=== PATIENT | male | born 1965 | race Caucasian/White ===

== ENCOUNTER 2017-03-22 01:44 | Emergency (ER) | payer MEDICARE ==
[~2017-03-22] VITALS: Ht 177.8 cm; Wt 93.9 kg
[2017-03-22 01:44] VITALS: BP 158/94
[~2017-03-22 01:44] MED LIST: AMLO5TAB4 PO; BACL10TA PO; ESCITALOPRAM OX20 MG PO; LISI40TA PO; TRAM50TA PO
[2017-03-22] MEDS ORDERED: methylPREDNISolone SOD SUCC PF 125 MG/2 ML VIAL. IV ONE (02:15)
[2017-03-22] MEDS ORDERED: IV NORMAL SALINE 1,000ML 1,000 ML IV SCH (02:15)
[2017-03-22] MEDS ORDERED: CLINDAMYCIN 900MG PREMIX 50 ML IV ONE (02:15)
[2017-03-22] MEDS ORDERED: IOHEXOL 300 MG/ML 75 ML VIAL. IV ONE (02:30)
[2017-03-22] MEDS ORDERED: CONTRAST GIVEN MC PRN (02:30)
[2017-03-22 02:38] LABS: C REACTIVE PROTEIN 74.7 mg/L (0-3.3); CALCIUM 9.3 mg/dL (8.5-10.1); CREATININE 0.8 mg/dL (0.7-1.3); GFR 101.9; POTASSIUM 3.5 mmol/L (3.5-5.1)
[2017-03-22 02:53] LABS: BASO # 0.1 x10^3/uL (0.0-0.2); BASO % 1 % (0-3); EOS # 0.3 x10^3/uL (0.0-0.7); EOS % 3 % (0-3); LYMPH # 2.4 x10^3/uL (1.0-4.8); LYMPH % 22 % (24-48); MEAN CORPUSCULAR HEMOGLOBIN 34 pg (25-35); MEAN CORPUSCULAR VOLUME 96 fL (79-100); MONO % 9 % (0-9); NEUT # 7.3 x10^3uL (1.8-7.7); NEUT % 66 % (31-73); PLATELET COUNT 291 x10^3/uL (140-400); RED CELL DISTRIBUTION WIDTH 12.1 % (11.5-14.5); WHITE BLOOD COUNT 11.1 x10^3/uL (4.0-11.0)
[2017-03-22 03:06] LABS: HEMATOCRIT 47.6 % (39.0-53.0); HEMOGLOBIN 16.8 g/dL (13.0-17.5); MEAN CORPUSCULAR HGB CONC 35 g/dL (31-37); RED BLOOD COUNT 4.94 x10^6/uL (4.30-5.70)
[2017-03-22] MEDS ORDERED: IPRATRPIUM/ALBUTEROL 0.5/2.5MG 3 ML NEBU. NEB ONE (03:15)
--- NOTE | 2017-03-22 03:38 | RAD ---
INDICATION: [id number] Omni 300 70cc: Right sided facial, dental pain with swelling. Hx: 2005 throat cancer nodule removal. COMPARISON: CT head January 2016 TECHNIQUE: Axial CT images obtained through the face with contrast. One or more of the following individualized dose reduction techniques were utilized for this examination: 1. Automated exposure control; 2. Adjustment of the mA and/or kV according to patient size; 3. Use of iterative reconstruction technique. FINDINGS: There is some mucosal thickening of the right maxillary sinus. Bowing of the nasal septum to the left. Subcutaneous swelling is seen throughout the face, right greater than left. No retro-orbital fluid collection. Large amount of dental artifact obscures regions. There are some scattered enlarged lymph nodes within the face and upper neck. For example posterior to the right mandible measuring up to 14 x 26 mm. Degenerative changes of partially visualized spine. IMPRESSION: Large amount of swelling is seen within the facial region. If the patient is having infectious symptoms this could be secondary to causes such as cellulitis. Adjacent to the right side of the maxilla within this region there is a region of low-attenuation measuring up to about 10 mm. Given the other findings this could be secondary to early abscess/phlegmon formation. Mucosal thickening is identified of the right maxillary sinus. Causes such as sinusitis not excluded. Lymphadenopathy is identified. Could be reactive in nature but neoplastic causes are not excluded on this exam and a follow-up should be obtained to ensure this resolves. Electronically signed by: Master Sun MD (03/22/2017 3:35 AM) [facility]
--- NOTE | 2017-03-22 03:44 | PHYS DOC ---
General Chief Complaint: DENTAL PROBLEM Stated Complaint: DENTAL PAIN, SWELLING Time Seen by MD: 01:52 Source: patient, old records Exam Limitations: no limitations Problems: History of Present Illness Initial Comments Patient is a 51-year-old male who comes to the ED complaining of dental pain and facial swelling. Patient states that for the past week or so he's had a worsening toothache at his right upper premolars. The past 24 hours he's had right-sided facial swelling and an increase in discomfort which prompted him to come for evaluation. He denies difficulty swallowing or breathing denies fever chills sweats or body aches. He's tried [id number] medications as well as tramadol without any relief. He is up front on arrival stating he does not want to be admitted to the hospital. He is afebrile, hypertensive on arrival consistent with physiologic response to pain otherwise vital signs are stable. He hasn't been eating the past few days due to discomfort but has been drinking plenty of fluids. Timing/Duration: other Severity: severe Location: mouth, facial, dental Prearrival Treatment: over the counter meds, prescription meds Modifying Factors: improves with other Associated Symptoms: facial pain/swelling, poor solids intake, tooth pain Allergies: Coded Allergies: codeine (Verified Allergy, Intermediate, 02/03/16) Past Medical History Medical History: CVA/TIA/stroke, hypertension, other (obstructive sleep apnea uses CPAP) Surgical History: noncontributory Social History Smoker: cigarettes Alcohol: occasionally Drugs: none Constitutional: denies chills, denies diaphoresis, denies fever, denies malaise Ears: denies dizziness, denies pain, denies tinnitus Nose: denies clots, denies epistaxis, denies pain Mouth: see HPI Throat: denies pain, denies swelling, denies neck stiffness, denies painful swallowing, denies difficulty with fluids Respiratory: denies cough, denies shortness of breath, denies wheezing Cardiovascular: denies chest pain, denies palpitations, denies syncope Gastrointestinal: denies abdominal pain, denies nausea, denies vomiting Musculoskeletal: denies back pain, denies joint swelling, denies neck pain Neurological: denies headache, denies numbness, denies paresthesia, denies weakness Physical Exam General Appearance: mild distress (appears uncomfortable right facial swelling) Eyes: bilateral eye normal inspection, bilateral eye PERRL, bilateral eye EOMI Ears: bilateral ear auricle normal, bilateral ear canal normal, bilateral ear TM normal Nose: normal inspection Mouth/Throat: other (extensive caries at right upper second premolar with gingival swelling no purulence or bony tenderness noted. 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 PATIENT: LEON SYLVESTER ACCOUNT: [id number] : 1965 LOCATION: ER AGE: 51 SEX: M EXAM STATUS: PRE ER ORD. PHYSICIAN: BARRETT AVILA DO REASON: R facial swelling/dental abscess r/o osteomyelitis PROCEDURE: CT MAXILLOFACIAL W/CONTRAST INDICATION: [id number] Omni 300 70cc: Right sided facial, dental pain with swelling. Hx: 2004 throat cancer nodule removal. COMPARISON: CT head January 2016 TECHNIQUE: Axial CT images obtained through the face with contrast. One or more of the following individualized dose reduction techniques were utilized for this examination: 1. Automated exposure control; 2. Adjustment of the mA and/or kV according to patient size; 3. Use of iterative reconstruction technique. FINDINGS: There is some mucosal thickening of the right maxillary sinus. Bowing of the nasal septum to the left. Subcutaneous swelling is seen throughout the face, right greater than left. No retro-orbital fluid collection. Large amount of dental artifact obscures regions. There are some scattered enlarged lymph nodes within the face and upper neck. For example posterior to the right mandible measuring up to 14 x 26 mm. Degenerative changes of partially visualized spine. IMPRESSION: Large amount of swelling is seen within the facial region. If the patient is having infectious symptoms this could be secondary to causes such as cellulitis. Adjacent to the right side of the maxilla within this region there is a region of low-attenuation measuring up to about 10 mm. Given the other findings this could be secondary to early abscess/phlegmon formation. Mucosal thickening is identified of the right maxillary sinus. Causes such as sinusitis not excluded. Lymphadenopathy is identified. Could be reactive in nature but neoplastic causes are not excluded on this exam and a follow-up should be obtained to ensure this resolves. Electronically signed by: Lars Sun MD (03/22/2017 3:35 AM) [facility] DICTATED AND SIGNED BY: LARS SUN MD DATE: 03/22/17 0256 CC: BARRETT AVILA DO ~ Pertinent labs: White blood cells 11.1, CRP 74.7, urine drug screen positive for alcohol and opiates DuoNeb with improved breath sounds and decreased wheezes. After 1 dose of fentanyl intravenously the patient achieves comfort and he lays down dozing off. Patient oxygen saturation drops to right at 90% on room air however when I evaluate the patient is lying with his neck flexed forward and he 's dozing off. When he adjust his position is oxygen saturation is normal and he is conversational with full sentences and in no respiratory distress at any time. 0431: Patient states that he notices a dramatic difference in the swelling since receiving Solu-Medrol intravenously as it has improved and his skin is no longer tight. I discussed results with the patient at length. I offered him observation admission which he declined. I discussed signs and symptoms to monitor as well as urgent indication to return to the department. His questions were answered to his satisfaction and I provided him information regarding the [facility] and [facility] clinic. He was advised to discontinue tobacco abuse and not to drink alcohol while taking pain medications. He will follow-up with his doctor on Saturday and schedule an SHANAE appointment with dentist. He expressed agreement and understanding of the treatment plan. Departure Time of Disposition: 04:13 Disposition: HOME, SELF-CARE Diagnosis: dental abscess with facial cellulitis, tobaccoism Condition: IMPROVED Patient Instructions: Dental Abscess, Smoking Cessation Additional Instructions: Stop smoking seek medical assistance if necessary. No alcohol while taking pain medications to avoid respiratory depression. Use CPAP while sleeping. Hoce-zlz-jmfkciq ibuprofen for baseline discomfort. Prescription: Arnold 7.5 mg quantity 20, clindamycin, prednisone You'll need to follow-up with a dentist once the infection is under control for resolution of this condition. Per your request we can provide information regarding the [facility] and [facility]. Follow-up by phone with these organizations later today so you can get an appointment on the books with a dentist. Return to ED with new or changing symptoms. BARRETT AVILA DO Mar 22, 2017 03:44
[2017-03-22 03:55] LABS: BARBITURATES NEG (NEG); BENZODIAZEPINES NEG (NEG); CANNABINOIDS NEG (NEG); COCAINE NEG (NEG); METHADONE NEG (NEG); OPIATES POS (NEG); PHENCYCLIDINE NEG (NEG)
[2017-03-22 03:57] LABS: AMPHETAMINE/METHAMPHETAMINE NEG (NEG)
[2017-03-22] MEDS ORDERED: PRED20TA PO (04:12)
[2017-03-22] MEDS ORDERED: HYDR-965 PO (04:12)
[2017-03-22] MEDS ORDERED: CLIN300C8 PO (04:12)
[2017-03-22] MEDS ORDERED: predniSONE 10 MG TABLET PO ONE (04:15)
[2017-03-22] MEDS ORDERED: predniSONE 20 MG TABLET ONE (04:19)
== END 2017-03-22 04:23 | disposition home or self-care (01) ==
LOC: ER 01:44
DX: K04.7 Periapical abscess without sinus (principal); L03.211 Cellulitis of face; I10 Essential (primary) hypertension; G47.33 Obstructive sleep apnea (adult) (pediatric); F17.210 Nicotine dependence, cigarettes, uncomplicated; Z86.73 Personal history of transient ischemic attack (TIA), and cerebral infarction without residual deficits; Z88.5 Allergy status to narcotic agent
CPT/HCPCS: 36415; 70487; 80048; 80307; 85025; 86140; 87040; 94640; 96365; 96375; 96376; 99285; J2930; J3010; J3490; J7512; J7620; G0479; J7030

== ENCOUNTER 2017-04-29 14:15 | Emergency (ER) | payer MEDICARE ==
[2017-04-29 14:15] VITALS: BP 107/67
[~2017-04-29 14:15] MED LIST changes: +CLIN300C8 PO; +HYDR-965 PO; +PRED20TA PO
[2017-04-29 16:29] LABS: BILIRUBIN,URINE NEG (NEG); CLARITY,URINE HAZY; COLOR,URINE AMBER; GLUCOSE,URINE NEG (NEG)
[2017-04-29 16:30] LABS: BACTERIA,URINE MOD /HPF (0-FEW); HYALINE CASTS, URINE FEW /HPF; NITRITE,URINE POS (NEG); SQUAMOUS EPITHELIAL CELL,UR OCC /LPF; UROBILINOGEN,URINE 0.2 mg/dL (0.2 mg/dL); WBC,URINE 20-40 /HPF (0-4); YEAST,URINE PRESENT /HPF
[2017-04-29] MEDS ORDERED: CIPR250T30 PO (17:21)
--- NOTE | 2017-04-29 17:21 | PHYS DOC ---
Past History Past Medical History: CVA, Hypertension, Other Additional Past Medical Histor: ADHD Past Surgical History: Other Smoking: Cigarettes Alcohol Use: Sober Additional Alcohol Information: 6 months Drug Use: None Adult General Chief Complaint Chief Complaint: PENIS PROBLEM HPI HPI 51-year-old male patient with history of ADHD complaining of intermittent episodes of urinary incontinence for the last 3 days and dysuria at the end of his urination. Patient states sometimes he urinates on his pants without recognizing of his urination and sometimes he has well controlled urination for the last 3 days. Patient complaining of dysuria in the office urination without abdominal pain, nausea vomiting, fever and chills. Patient states he had problem with his ejaculation 3 months ago and seen by his primary care physician and evaluated for prostate problem. Review of Systems Review of Systems Constitutional: Denies fever or chills [] Eyes: Denies change in visual acuity, redness, or eye pain [] HENT: Denies nasal congestion or sore throat [] Respiratory: Denies cough or shortness of breath [] Cardiovascular: No additional information not addressed in HPI [] GI: Denies abdominal pain, nausea, vomiting, bloody stools or diarrhea [] : Reports dysuria and urinary incontinence Musculoskeletal: Denies back pain or joint pain [] Integument: Denies rash or skin lesions [] Neurologic: Denies headache, focal weakness or sensory changes [] Endocrine: Denies polyuria or polydipsia [] All other systems were reviewed and found to be within normal limits, except as documented in this note. Allergies Allergies Allergies Coded Allergies Type Severity Reaction Last Updated Verified codeine Allergy Intermediate 02/03/16 Yes Physical Exam Physical Exam Constitutional: Well nourished, no acute distress, non-toxic appearance, anxious. [] HENT: Normocephalic, atraumatic, bilateral external ears normal, oropharynx moist, no oral exudates, nose normal. [] Eyes: PERRLA, EOMI, conjunctiva normal, no discharge. [] Neck: Normal range of motion, no tenderness, supple, no stridor. [] Cardiovascular:Heart rate regular rhythm, no murmur [] Lungs & Thorax: Bilateral breath sounds clear to auscultation [] Abdomen: Bowel sounds normal, soft, no tenderness, no masses, no pulsatile masses. [] Skin: Warm, dry, no erythema, no rash. [] Back: No tenderness, no CVA tenderness. [] Extremities: No tenderness, no cyanosis, no clubbing, ROM intact, no edema. [] Neurologic: Alert and oriented X 3, normal motor function, normal sensory function, no focal deficits noted. [] Psychologic: Affect normal, judgement normal, mood normal. [] Current Patient Data Vital Signs Vital Signs Date Time Temp Pulse Resp B/P (MAP) Pulse Ox O2 Delivery O2 Flow Rate FiO2 04/29/17 14:15 97.8 105 18 96 Room Air Lab Results Laboratory Tests Test 04/29/17 15:52 Urine Collection Type Void Urine Color Cherry Urine Clarity Hazy Urine pH 6.0 Urine Specific Webster 1.025 Urine Protein 100 mg/dl (NEG-TRACE) Urine Glucose (UA) Neg mg/dL (NEG) Urine Ketones (Stick) Trace mg/dL (NEG) Urine Blood Mod (NEG) Urine Nitrite Pos (NEG) Urine Bilirubin Neg (NEG) Urine Urobilinogen Dipstick 0.2 mg/dL (0.2 mg/dL) Urine Leukocyte Esterase Small (NEG) Urine RBC 11-20 /HPF (0-2) Urine WBC 20-40 /HPF (0-4) Urine Squamous Epithelial Cells Occ /LPF Urine Bacteria Mod /HPF (0-FEW) Urine Hyaline Casts Few /HPF Urine Mucus Mod /LPF Urine Yeast Present /HPF EKG EKG [] Radiology/Procedures Radiology/Procedures [] Course & Med Decision Making Course & Med Decision Making Pertinent Labs reviewed. (See chart for details) Evaluation of patient in ER showed 51-year-old male patient with complaining of urinary incontinence intermittently and dysuria for the last 3 days. Patient had unremarkable physical exam. UA showed UTI. Patient left without having the discharge paper. [] Dragon Disclaimer Dragon Disclaimer This electronic medical record was generated, in whole or in part, using a voice recognition dictation system. Departure Departure: Impression: Primary Impression: Urinary tract infection Additional Impression: Urine incontinence Disposition: HOME, SELF-CARE (At 1715) Condition: STABLE Referrals: KARIN DASH MD (PCP) Patient Instructions: Urinary Tract Infection Additional Instructions: Follow-up with your primary care physician in 2-3 days Return to ER if not getting better Scripts Ciprofloxacin Hcl (CIPRO) 250 Mg Tablet 1 TAB PO BID, #14 TAB Prov: DOLORES MCKOY MD 04/29/17 Problem Qualifiers DOLORES MCKOY MD Apr 29, 2017 17:21
== END 2017-04-29 17:20 | disposition home or self-care (01) ==
LOC: ER 14:15
DX: N39.0 Urinary tract infection, site not specified (principal); R32 Unspecified urinary incontinence; I10 Essential (primary) hypertension; F90.9 Attention-deficit hyperactivity disorder, unspecified type; F17.210 Nicotine dependence, cigarettes, uncomplicated; Z86.73 Personal history of transient ischemic attack (TIA), and cerebral infarction without residual deficits; Z88.5 Allergy status to narcotic agent
CPT/HCPCS: 81001; 87086; 87186; 99284

== ENCOUNTER 2018-08-08 01:47 | Observation (INO) | payer MEDICARE ==
[~2018-08-08] VITALS: Ht 177.8 cm; Wt 104.8 kg
[~2018-08-08 01:47] MED LIST changes: +CIPR250T30 PO; +HYDR-3166 PO; -HYDR-965 PO
--- NOTE | 2018-08-08 02:09 | PHYS DOC ---
Past History Past Medical History: CVA, Hypertension, Other Additional Past Medical Histor: ADHD Past Surgical History: Other Smoking: Cigarettes Alcohol Use: Sober Drug Use: None Adult General Chief Complaint Chief Complaint: ALTERED MENTAL STATUS [facility] HPI Patient is a 53-year-old male who arrives via EMS with report of acute mental status changes at home. Patient's reportedly thought the patient was sleeping because he was snoring but states that the snoring sounded a bit funny. She states that it one point that he started shaking and she couldn't get him to respond. She states that he was foaming at the mouth and so had called 911. EMS reports that upon their arrival patient initially was unresponsive and then spontaneously returned to his responsiveness. They state that at first he was a bit confused but then was answering questions. They state that patient again went unresponsive, lasting for approximately 25 minutes and upon arrival to the emergency room, patient had regained responsiveness. Patient states that he does not recall what happened. Review of Systems Review of Systems Constitutional: Denies fever or chills [] Respiratory: Denies cough or shortness of breath [] Cardiovascular: No additional information not addressed in HPI [] GI: Denies abdominal pain, nausea, vomiting or diarrhea [] Neurologic: Positive seizure-like activity[] Unable to fully assess review of systems as patient is poor historian. Allergies Allergies Allergies Coded Allergies Type Severity Reaction Last Updated Verified codeine Allergy Intermediate 02/03/16 Yes Physical Exam Physical Exam Constitutional: Well developed, well nourished, no acute distress, non-toxic appearance. [] HENT: Normocephalic, atraumatic, bilateral external ears normal, oropharynx moist, no oral exudates, nose normal. [] Eyes: PERRLA, EOMI, conjunctiva normal, no discharge. [] Neck: Normal range of motion, no tenderness, supple, no stridor. [] Cardiovascular:Heart rate regular rhythm, no murmur [] Lungs & Thorax: Bilateral breath sounds clear to auscultation [] Abdomen: Bowel sounds normal, soft, no tenderness. [] Skin: Warm, dry, no erythema, no rash. [] Extremities: No tenderness, no cyanosis, no clubbing, ROM intact, no edema. [] Neurologic: Awake and alert, no focal deficits noted. [] Psychologic: Patient appears moderately anxious and emotionally labile. [] EKG EKG EKG demonstrates normal sinus rhythm with rate of 95.[] Radiology/Procedures Radiology/Procedures [] Impressions: PROCEDURE: CT HEAD WO CONTRAST CT head without contrast PQRS statement: CT scans at this facility use dose reduction including either automated exposure control, iterative reconstructions, and /or weight based radiation dosing via mA and kV modification when appropriate to reduce radiation dose to as low as reasonably achievable. HISTORY: Altered mental status, confusion and weakness. TECHNIQUE: [address] imaging skull base to vertex. FINDINGS: 1 cm cavitary chronic ischemic infarct right basal ganglia. No acute ischemic changes evident. No intracranial hemorrhage, mass or hydrocephalus. Orbits, paranasal sinuses, mastoids and bones are unremarkable. IMPRESSION: No acute intracranial CT abnormality. Chronic right basal ganglia infarct. Electronically signed by: Watson Akhtar MD (08/08/2018 2:49 AM) [facility] Course & Med Decision Making Course & Med Decision Making Pertinent Labs and Imaging studies reviewed. (See chart for details) [] Dragon Disclaimer Dragon Disclaimer This electronic medical record was generated, in whole or in part, using a voice recognition dictation system. Departure Departure: Impression: Primary Impression: Altered mental status, unspecified Disposition: ADMITTED INPATIENT Admitting Physician: Lyla Li Condition: IMPROVED Referrals: KARIN DASH MD (PCP) Problem Qualifiers Primary Impression: Altered mental status, unspecified Altered mental status type: transient alteration of awareness Qualified Codes : R40.4 - Transient alteration of awareness YUE MCGREGOR Jr. DO Aug 08, 2018 02:08
[2018-08-08] MEDS ORDERED: ZIPRASIDONE IM 20 MG VIAL. IM ONE (02:30)
[2018-08-08 02:49] LABS: ALBUMIN 3.7 g/dL (3.4-5.0); ALBUMIN/GLOBULIN RATIO 1.2 (1.0-1.7); CREATININE 0.9 mg/dL (0.7-1.3); GFR 88.3; MAGNESIUM 2.1 mg/dL (1.8-2.4); POTASSIUM 3.6 mmol/L (3.5-5.1); TOTAL BILIRUBIN 0.3 mg/dL (0.2-1.0); TOTAL PROTEIN 6.8 g/dL (6.4-8.2)
[2018-08-08 02:51] LABS: BASO # 0.1 x10^3/uL (0.0-0.2); BASO % 1 % (0-3); EOS # 0.2 x10^3/uL (0.0-0.7); EOS % 2 % (0-3); HEMATOCRIT 45.1 % (39.0-53.0); LYMPH # 3.2 x10^3/uL (1.0-4.8); LYMPH % 38 % (24-48); MEAN CORPUSCULAR HEMOGLOBIN 33 pg (25-35); MEAN CORPUSCULAR HGB CONC 35 g/dL (31-37); MEAN CORPUSCULAR VOLUME 93 fL (79-100); MONO # 0.7 x10^3/uL (0.0-1.1); MONO % 9 % (0-9); NEUT # 4.3 x10^3uL (1.8-7.7); NEUT % 51 % (31-73); PLATELET COUNT 256 x10^3/uL (140-400); RED BLOOD COUNT 4.85 x10^6/uL (4.30-5.70); WHITE BLOOD COUNT 8.4 x10^3/uL (4.0-11.0)
--- NOTE | 2018-08-08 02:51 | RAD ---
CT head without contrast PQRS statement: CT scans at this facility use dose reduction including either automated exposure control, iterative reconstructions, and /or weight based radiation dosing via mA and kV modification when appropriate to reduce radiation dose to as low as reasonably achievable. HISTORY: Altered mental status, confusion and weakness. TECHNIQUE: [address] imaging skull base to vertex. FINDINGS: 1 cm cavitary chronic ischemic infarct right basal ganglia. No acute ischemic changes evident. No intracranial hemorrhage, mass or hydrocephalus. Orbits, paranasal sinuses, mastoids and bones are unremarkable. IMPRESSION: No acute intracranial CT abnormality. Chronic right basal ganglia infarct. Electronically signed by: Watson Akhtar MD (08/08/2018 2:49 AM) [facility]
[2018-08-08] MEDS ORDERED: DEXTROSE 50% 25 GM / 50ML DISP.SYRIN. IV PRN (03:15)
[2018-08-08] MEDS ORDERED: KETOROLAC 30 MG/ML VIAL. IV ONE (03:30)
[2018-08-08 04:00] VITALS: BP 159/101
[2018-08-08 06:25] LABS: CLARITY,URINE CLEAR; COLOR,URINE YELLOW
[2018-08-08 06:26] LABS: BACTERIA,URINE 0 /HPF (0-FEW); BILIRUBIN,URINE NEG (NEG); GLUCOSE,URINE 100 mg/dL (NEG); NITRITE,URINE NEG (NEG); RBC,URINE 0 /HPF (0-2); SQUAMOUS EPITHELIAL CELL,UR OCC /LPF; UROBILINOGEN,URINE 0.2 mg/dL (0.2 mg/dL)
[2018-08-08 06:28] LABS: BARBITURATES NEG (NEG); BENZODIAZEPINES NEG (NEG); CANNABINOIDS NEG (NEG); COCAINE NEG (NEG); METHADONE NEG (NEG); OPIATES NEG (NEG); PHENCYCLIDINE NEG (NEG)
[2018-08-08 06:29] LABS: AMPHETAMINE/METHAMPHETAMINE NEG (NEG)
--- NOTE | 2018-08-08 07:36 | RAD ---
Portable chest, 08/08/2018: HISTORY: Confusion, altered mental status Comparison is made to a study from 02/03/2016. The heart size and pulmonary vascularity are normal. No pulmonary infiltrates are seen. There is no evidence of pleural fluid. IMPRESSION: No acute cardiopulmonary abnormality is detected. Electronically signed by: Thad Cohen MD (08/08/2018 7:33 AM) [facility]
[2018-08-08 09:05] VITALS: BP 136/89
[2018-08-08] MEDS: INSULIN LISPRO 300 UNITS/3 ML INSULN.PEN. SQ SCH ×3 (09:26→17:00)
[2018-08-08] MEDS: KETOROLAC 30 MG/ML VIAL. IV PRN ×2 (09:59→18:42)
[2018-08-08 12:36] VITALS: BP 136/91
--- NOTE | 2018-08-08 14:20 | EKG ---
[address] [address] Test Date: 2018-08-08 Test Time: 01:57:49 Pat Name: LEON SYLVESTER Department: Room: [facility] 1 Gender: M Tree Killer: : 1965 Requested By: YUE MCGREGOR Order Number: [id number] Reading MD: Slade Benitez MD Measurements Intervals Kelley Rate: 95 P: 3 SD: 158 QRS: 52 QRSD: 98 T: 63 QT: 348 QTc: 441 Interpretive Statements SINUS RHYTHM NON-SPECIFIC ST/T CHANGES Electronically Signed On 08-12-2018 11:58:05 CDT by Slade Benitez MD
[2018-08-08] MEDS ORDERED: traZODone 50 MG TABLET. PO PRN (15:30)
--- NOTE | 2018-08-08 16:03 | HP ---
ADMIT DATE: 08/08/2018 HISTORY OF PRESENT ILLNESS: The patient is a 53-year-old male patient, who arrived via EMS with report of acute mental status changes at home. His reportedly told that the patient was sleeping because he was snoring, but states that the snoring sounded a bit funny. She stated that at one point in time he started shaking and she could not get him to respond. She stated that he was foaming at the mouth and so she called 911. Emergency medical service personnel reported. Upon arrival, the patient initially was unresponsive and spontaneously returned to his responsiveness. At first he was a bit confused, but then was answering questions. The patient again went unresponsive, lasting approximately 25 minutes and upon arrival to the Emergency Room he has regained his responsiveness and he stated that he does not recall what happened. He was evaluated in the Emergency Room and his lab work was unremarkable. In particular, there is no evidence that he has hypoglycemia. In fact, his blood sugar was 207. No other metabolic abnormality, namely the sodium is normal. Calcium was also normal, has no leukocytosis. He was afebrile and the toxic screen was negative. Has had a CT scan of the head, which showed no acute intracranial abnormality, has chronic right basal ganglia infarct, was admitted for observation and to consult Dr. Somers, the neurologist. 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 He apparently was a smoker, previous alcoholism, but quit smoking years ago. ALLERGIES: He is allergic to CODEINE. FAMILY HISTORY: Positive for coronary artery disease. SOCIAL HISTORY: He is , lives with his . He quit drinking, but apparently continues to smoke, does not use any illicit drugs. REVIEW OF SYSTEMS: As per history of present illness. MEDICATIONS: He is currently on following medications: He is on atorvastatin 20 mg at bedtime, lisinopril 20 mg daily, trazodone 50 mg at bedtime, hydrochlorothiazide 25 mg once a day, metformin 500 mg twice a day with meals, Humalog insulin as per insulin sliding scale before meals, glyburide 1.25 mg twice a day. PHYSICAL EXAMINATION: GENERAL: On arrival to the Emergency Room; he was awake, alert, responding appropriately. There was no pallor, jaundice, cyanosis, or thyromegaly. No jugular venous distension. No lower limb edema. VITAL SIGNS: His heart rate was 92, blood pressure was 167/106, temperature was 98.1, respiratory rate 22 and oxygen saturation was 96% on room air. HEAD, EYES, EARS, NOSE, AND THROAT: Showed normocephalic, atraumatic. NECK: Supple. HEART: Showed normal first and second heart sounds. No gallop, rub or murmur. CHEST: Clear to auscultation. No crepitation or rhonchi. ABDOMEN: Distended, soft, nontender. No guarding or rigidity. No organomegaly. All hernial orifices intact. Bowel sounds normal. NEUROLOGIC: He was apparently awake, alert, responding appropriately. Extraocular movements intact. EXTREMITIES: He moves extremities without difficulty, ambulates without assistance or assistive devices. LABORATORY DATA: Showed a white cell count of 8400, hemoglobin 16, hematocrit 45, MCV 93, and platelet count 256,000. His chemistry showed a serum sodium 138, potassium 3.6, chloride 100, bicarbonate 29, anion gap of 9, BUN 19, creatinine 0.9, estimated GFR was 80 mL per minute. His glucose was 207, calcium was 9, magnesium was 2.1. Total bilirubin, AST, ALT, alkaline phosphatase were normal. His beta natriuretic peptide was 42. Total protein was 6.8, albumin was 3.7. His urinalysis was essentially unremarkable and toxic screen was negative for opiates, methadone, barbiturates, phencyclidine, amphetamine, methamphetamine, benzodiazepine, cocaine, cannabinoids, and ethyl alcohol. His nasal screen for MRSA PCR was negative. His CT scan of the head showed that the patient has 1 cm cavitary chronic ischemic infarct with right basal ganglia. No acute ischemic changes event, no intracranial hemorrhage, mass effect or hydrocephalus orbits, paranasal sinuses, mastoid air cells and bones are all unremarkable. His chest x-ray showed the heart size and pulmonary vascularity are normal. No pulmonary infiltrates are seen. There is no evidence of pleural fluid. ASSESSMENT AND PLAN: The patient was admitted for observation to monitor his blood sugar and to consult the neurologist as given the presentation as well as the fact that he has a stroke before, likely to have seizure disorder. FLY RODRÍGUEZ MD DR: JUDITH/gali JOB#: [id number] / [id number]
[2018-08-08] MEDS: metFORMIN 500 MG TABLET PO SCH (17:20)
[2018-08-08] MEDS: glyBURIDE 1.25 MG TABLET PO SCH (17:20)
[2018-08-08 18:31] VITALS: BP 154/83
[2018-08-08 19:01] VITALS: BP 119/72
[2018-08-08] MEDS ORDERED: ATORVASTATIN CALCIUM 20 MG TABLET PO SCH (21:00)
[2018-08-08 23:52] VITALS: BP 152/85
[2018-08-09] MEDS: KETOROLAC 30 MG/ML VIAL. IV PRN ×2 (00:54→09:34)
[2018-08-09 07:00] VITALS: BP 145/95
--- NOTE | 2018-08-09 08:12 | CONS ---
DATE OF CONSULTATION: 08/08/2018 REFERRING PHYSICIAN: Lyla Li MD REASON FOR CONSULTATION: Mental status changes, rule out seizure. HISTORY OF PRESENT ILLNESS: This is a 53-year-old right-handed male, who was admitted through Emergency Room after he presented with chief complaints of acute onset of mental status changes and possible seizure-like activities. According to the patient, he was lying down with his , watching a TV around 07:30 p.m., all of a sudden he went into sleep and started snoring strangely. His stated that she wanted to wake him up, but he was unresponsive. The symptoms lasted approximately 25 minutes. EMS was activated and on arrival, he was found to be unresponsive. His blood glucose was high at 207. The patient stated he felt that he was transferred to the ambulance and it was reported that the patient was foaming at the mouth when he was at home and there was questionable jerking movements. In ambulance, the patient was awake for a brief time and then he became unresponsive again until here again he gained in the Emergency Room. He was somewhat confused. He denies tongue biting, bowel or bladder incontinence. The patient stated he used to be alcoholic and he had seizure-like activity in the past. The etiology was not clear and possible withdrawal alcohol seizure. The last spell of confusion was approximately 3 weeks ago. He was evaluated in the Emergency Room at [facility] and he was transferred immediately to a psychiatric hospital in [place] where he stayed approximately 3 days. He was evaluated by a psychiatrist and he was diagnosed with possible post-traumatic stress disorder. Subsequently, the patient quit drinking. Initial nonenhanced head CT scan revealed no evidence of acute intracranial process. He was admitted to ICU for further evaluation. PAST MEDICAL HISTORY: Significant for chronic back pain, attention-deficit hyperactivity disorders, hypertension, possible transient ischemic attack, anxiety, depressions, and intermittent hypoglycemia. PAST SURGICAL HISTORY: Significant for removal of a benign neck tumor, amputation of the toe after injury. SOCIAL HISTORY: The patient is . He has one stepson. He denies alcohol drinking, but he continues to smoke at least a half pack of cigarettes daily. FAMILY HISTORY: Positive for coronary artery disease. CURRENT HOME MEDICATIONS: Lipitor 20 mg at bedtime, lisinopril 20 mg daily, trazodone 50 mg at bedtime, hydrochlorothiazide 25 mg daily, metformin 500 mg twice daily and Humalog insulin and sliding scale and glyburide 1.25 mg twice daily. REVIEW OF SYSTEMS: A 10-point review of system was performed as mentioned above in history of present illness. The patient denies headaches, visual disturbances, nausea, vomiting, chest pain, shortness of breath or palpitation, dysarthria, dysphagia, weakness or paresthesia. PHYSICAL EXAMINATION: GENERAL: Well-developed, well-nourished male, not in acute distress. VITAL SIGNS: He weighs 214 pounds, blood pressure 136/89, respiratory rate 18, pulse is 74 and regular, temperature is 97.4, oxygen saturation 95% on room air. HEENT: Normocephalic, atraumatic, otherwise, unremarkable. NECK: Supple, negative for carotid bruit, lymphadenopathy or thyromegaly. LUNGS: Clear to A and P. CARDIOVASCULAR: Regular rate and rhythm, normal S1, S2. There is no S3, S4 or murmur. ABDOMEN: Soft. Bowel sounds positive. EXTREMITIES: Negative for cyanosis, clubbing or pitting edema. NEUROLOGICAL: Mental Status: The patient is alert and oriented x 3. The speech is fluent. There is no language dysfunction. Memory, judgment and abstracting thinking are normal. The patient denies hallucination or delusion. CRANIAL NERVES: Visual damico are full. The pupils are reactive to light and accommodation. The extraocular movements are intact. There is no nystagmus. There is no facial motor or sensory deficit. Deep tendon reflexes were symmetric and active without pathology responses. Gait and coordination were normal. DIAGNOSTIC DATA: Initial nonenhanced head CT scan revealed no acute intracranial process, but showed chronic right basal ganglia infarct. Chest x-ray revealed no acute cardiopulmonary process. LABORATORY DATA: CBC revealed white blood cells of 8400, hemoglobin 16, hematocrit 45.1, platelet count 256,000. Chemistry revealed sodium of 138, potassium 3.6, chloride 100, CO2 of 29, BUN 19, creatinine 0.9, glucose 207. Liver enzymes are normal. Troponin is normal. CRP is high at 7.6. TSH is normal with low prolactin level. Urine drug screen is negative. Urinalysis is negative for urinary tract infection. IMPRESSION: 1. Acute onset of mental status changes, presented with sudden onset of loss of consciousness with snoring and foaming at the mouth with questionable intermittent jerking movements. These symptoms may represent epileptic versus non-epileptic seizure. 2. Multiple medical problems include diabetes mellitus, hypertension, hyperlipidemia. 3. Multiple psychiatric problems include attention-deficit hyperactivity disorders, depressions and anxiety. RECOMMENDATIONS: 1. Electroencephalogram. 2. Treat the underlying medical conditions. 3. If the patient has seizure activities, we will start him on anticonvulsant. M Winifred KAMINSKI MD DR: BERTHA/gali JOB#: [id number] / [id number]
[2018-08-09 08:13] LABS: ALBUMIN/GLOBULIN RATIO 0.9 (1.0-1.7); CALCIUM 8.3 mg/dL (8.5-10.1); CREATININE 0.8 mg/dL (0.7-1.3); GFR 101.1; POTASSIUM 3.9 mmol/L (3.5-5.1); TOTAL BILIRUBIN 0.2 mg/dL (0.2-1.0); TOTAL PROTEIN 6.2 g/dL (6.4-8.2)
[2018-08-09 08:14] LABS: HEMATOCRIT 43.6 % (39.0-53.0); HEMOGLOBIN 15.3 g/dL (13.0-17.5); RED BLOOD COUNT 4.69 x10^6/uL (4.30-5.70); RED CELL DISTRIBUTION WIDTH 13.2 % (11.5-14.5); WHITE BLOOD COUNT 7.1 x10^3/uL (4.0-11.0)
[2018-08-09] MEDS ORDERED: hydroCHLOROthiazide 25 MG TABLET PO SCH (09:00)
[2018-08-09] MEDS ORDERED: LISINOPRIL 20 MG TABLET PO SCH (09:00)
[2018-08-09] MEDS: metFORMIN 500 MG TABLET PO SCH (09:23)
[2018-08-09] MEDS: glyBURIDE 1.25 MG TABLET PO SCH (09:23)
[2018-08-09] MEDS: INSULIN LISPRO 300 UNITS/3 ML INSULN.PEN. SQ SCH (09:24)
[2018-08-09] MEDS ORDERED: NICOTINE 21MG PATCH. TD SCH (10:15)
[2018-08-09 11:00] VITALS: BP 144/76
[2018-08-09] MEDS ORDERED: ATOR20TA58 PO (11:42)
[2018-08-09] MEDS ORDERED: METF500T16 PO (11:42)
[2018-08-09] MEDS ORDERED: GLYB2.5T2 PO (11:42)
[2018-08-09] MEDS ORDERED: HYDR-2145 PO (11:42)
--- NOTE | 2018-08-09 12:37 | DS ---
DATE OF DISCHARGE: 08/09/2018 HOSPITAL COURSE: This is a 53-year-old male patient who was admitted with altered mental status. He was evaluated in the Emergency Room and was extensively investigated. All his lab works were within acceptable range except when he arrived, his blood sugar was slightly elevated with normal white cell count. Urinalysis unremarkable and tox screen was essentially negative. Has had CT scan of the head, which showed a 1 cm cavitary chronic ischemic infarct of the right basal ganglia. No acute ischemic changes evident. No intracranial hemorrhage, mass effect or hydrocephalus. His orbits, paranasal sinuses, mastoid air cells and bones were unremarkable. He was seen in consultation by Dr. Somers, the neurologist, who recommended outpatient electroencephalogram. As he remained stable over the last more than 24 hours and has had no further seizure activity, a decision was made to discharge him home to follow up with his primary care physician as well as Dr. Somers as an outpatient. PHYSICAL EXAMINATION: GENERAL: When I saw him this morning, he looked well and was clearly in no apparent respiratory distress. No pallor, jaundice, cyanosis, or thyromegaly. No jugular venous distention. No lower limb edema. VITAL SIGNS: His heart rate was 65, blood pressure was 144/72, temperature was 97.4, respiratory rate 20, and oxygen saturation was 95% on room air. HEAD, EYES, EARS, NOSE AND THROAT: Showed normocephalic, atraumatic. NECK: Supple. HEART: Showed normal first and second heart sounds. No gallop, rub, or murmur. CHEST: Clear to auscultation. No crepitation or rhonchi. ABDOMEN: Distended, soft, nontender. No guarding or rigidity. No organomegaly. All hernial orifice intact. Bowel sounds normal. NEUROLOGIC: He is awake, alert, responding appropriately. All cranial nerves intact. He moves extremities without difficulty. His lab work this morning showed a white cell count of 7100, hemoglobin 15, hematocrit 44, MCV 93, and platelet count 230,000. His sed rate was 5. His chemistry showed a serum sodium of 141, potassium 3.9, chloride 106, bicarbonate 27, anion gap of 8, BUN 18, creatinine 0.8, estimated GFR was 101 mL per minute. His glucose was 206, calcium was 8.3. Total bilirubin, AST, ALT, alkaline phosphatase were normal. Total protein was 6.2, albumin 3. Urinalysis was unremarkable. Tox screen was negative. His nasal screen for MRSA by PCR was negative and has remained stable. Blood pressure is somewhat better controlled as we restarted all his medication and has had no documented seizures since he arrived here. A decision was made to discharge him home to continue on following medications: Hydrochlorothiazide 25 mg once a day, lisinopril 20 mg once a day, atorvastatin 20 mg at bedtime, glyburide 1.25 mg twice a day, metformin 500 mg twice a day, trazodone 50 mg once a day. He is also on Humalog insulin as insulin sliding scale before meals only. FINAL DISCHARGE DIAGNOSES: 1. Altered mental status, resolved. The patient has been awake, alert. The patient did not bite his tongue. He was not incontinent of bowel or bladder and has had no further similar episodes during his stay in the hospital. 2. The patient has multiple other medical problems including: A. Type 2 diabetes mellitus that is not optimally controlled. B. Hypertension. C. Hyperlipidemia. The patient is known also to have depression, anxiety and attention deficit hyperactivity disorder. FLY RODRÍGUEZ MD DR: JUDITH/gali JOB#: [id number] / [id number]
--- NOTE | 2018-08-09 14:46 | PN ---
DATE: 08/09/2018 SUBJECTIVE: The patient complains of severe frontal headaches, started about half an hour ago. He received Toradol 30 mg intravenously 20 minutes ago. He denies nausea, visual disturbances, paresthesia or weakness. OBJECTIVE: GENERAL: Well-developed, well-nourished male, not in acute distress. VITAL SIGNS: Blood pressure 144/76, respiratory rate 20, pulse is 65 and regular, temperature is 97.4, oxygen saturation is 95% on room air. HEENT: Normocephalic, atraumatic, otherwise unremarkable. NECK: Supple. Negative for carotid bruit, lymphadenopathy or thyromegaly. LUNGS: Clear to A and P. CARDIOVASCULAR: Regular rate and rhythm, normal S1, S2. There is no S3, S4, or murmur. ABDOMEN: Soft. Bowel sounds positive. EXTREMITIES: Negative for cyanosis, clubbing or pitting edema. NEUROLOGIC: Normal mental status and intact cranial nerves. There is no focal, motor, or sensory deficit. Deep tendon reflexes were symmetric and active without pathologic responses. Gait not tested. LABORATORY DATA: CBC revealed white blood cells of 7.1, hemoglobin 15.3, hematocrit 43.6, platelet count 230. Chemistry revealed sodium of 141, potassium 3.9, chloride 106, CO2 27, BUN 18, creatinine 0.8, glucose 180, calcium 8.3. IMPRESSION: 1. Recurrent episode of loss of consciousness with possible epileptic versus nonepileptic seizure. 2. New onset of frontal headaches. 3. Multiple medical problems include diabetes mellitus, hypertension, and hyperlipidemia. 4. Multiple psychiatric problems include attention deficit hyperactivity disorder, depression and anxiety. RECOMMENDATIONS: 1. We will arrange for an electroencephalogram to be done on an outpatient basis. 2. the underlying tension headaches. 3. Continue with current management initiated by Dr. Li. M Winifred KAMINSKI MD DR: BERTHA/gali JOB#: [id number] / [id number]
== END 2018-08-09 12:05 | disposition home or self-care (01) ==
LOC: ER 01:47 → ICU 03:05 → INTOOBSV 03:05
PROVIDERS: ADMIT Internal Medicine; ATTEND Internal Medicine
DX: R41.82 Altered mental status, unspecified (principal); G40.909 Epilepsy, unspecified, not intractable, without status epilepticus; E11.9 Type 2 diabetes mellitus without complications; E78.5 Hyperlipidemia, unspecified; F10.21 Alcohol dependence, in remission; F17.210 Nicotine dependence, cigarettes, uncomplicated; F32.9 Major depressive disorder, single episode, unspecified; F41.9 Anxiety disorder, unspecified; F90.9 Attention-deficit hyperactivity disorder, unspecified type; I10 Essential (primary) hypertension; Z82.49 Family history of ischemic heart disease and other diseases of the circulatory system; Z86.73 Personal history of transient ischemic attack (TIA), and cerebral infarction without residual deficits; Z89.429 Acquired absence of other toe(s), unspecified side; G89.29 Other chronic pain; R06.83 Snoring
CPT/HCPCS: 36415; 70450; 71045; 80053; 80307; 81001; 82140; 82947; 83605; 83735; 83880; 84146; 84484; 85025; 85027; 85651; 86140; 87641; 93005; 96372; 96374; 96376; 99284; G0378; G0480; J1815; J1885; G0379; 99285-25

== ENCOUNTER → 2018-10-07 | Outpatient (CLI) | payer MEDICARE ==
[~2018-10-07] MED LIST changes: +ATOR20TA58 PO; +GLYB2.5T2 PO; +HYDR-2145 PO; +METF500T16 PO
--- NOTE | 2018-10-07 16:41 | RAD ---
Cervical spine, 3 views, 10/07/2018: HISTORY: Neck pain There is mild disc space narrowing at C5-6 with mild marginal spurring. There are a few other scattered spurs in the cervical spine. C7 was not adequately visualized in the lateral projection due to the high position of the patient shoulders. There are moderate degenerative changes involving scattered facet joints bilaterally. No fracture or dislocation is identified. IMPRESSION: 1. Moderate multilevel degenerative change. 2. No acute bony abnormality is detected. Electronically signed by: Thad Cohen MD (10/07/2018 4:38 PM) [facility]
== END | disposition home or self-care (01) ==
LOC: DXRAD 12:14
PROVIDERS: ATTEND Family Medicine
DX: M47.812 Spondylosis without myelopathy or radiculopathy, cervical region (principal); M48.02 Spinal stenosis, cervical region; M46.02 Spinal enthesopathy, cervical region; I10 Essential (primary) hypertension
CPT/HCPCS: 72040

== ENCOUNTER → 2019-02-02 | Outpatient (CLI) | payer MEDICARE ==
--- NOTE | 2019-02-03 16:05 | RAD ---
EXAM: 3 Views Right Shoulder DATE: 02/02/2019 12:00 AM INDICATION: Right shoulder pain COMPARISON: No Prior FINDINGS: There is no evidence for acute fracture or dislocation. AC joint is congruent. Humeral head is not high riding. IMPRESSION: 1. No acute fracture or dislocation. Electronically signed by: Dylan Braun MD (02/03/2019 4:02 PM) [id number]
== END | disposition home or self-care (01) ==
LOC: DXRAD 12:38
PROVIDERS: ATTEND Orthopaedic Surgery Sports Medicine
DX: M25.511 Pain in right shoulder (principal)
CPT/HCPCS: 73030